=== PATIENT | female | born 1990 | race Caucasian/White ===

== ENCOUNTER 2024-05-13 22:54 | Emergency (ER) | payer MEDICAID, OTHER ==
[~2024-05-13] VITALS: Ht 162.6 cm; Wt 52.0 kg
[2024-05-13 23:04] VITALS: BP 99/54; PULSE 89; RESP 15; TEMP 37.2; O2SAT 100; O2SAT 99
== END 2024-05-14 03:51 | disposition home or self-care (01) ==
LOC: ER 22:54
DX: Z11.3 Encounter for screening for infections with a predominantly sexual mode of transmission (principal)
CPT/HCPCS: 36415; 99283